=== PATIENT | male | born 1985 | race Caucasian/White ===

== ENCOUNTER 2019-01-12 22:28 | Emergency (ER) | payer OTHER ==
[~2019-01-12] VITALS: Ht 182.9 cm; Wt 82.6 kg
--- NOTE | 2019-01-12 23:05 | PHYS DOC ---
Adult General Chief Complaint Chief Complaint: ABDOMINAL PAIN HPI HPI 33-year-old male presents with right flank pain. The patient tells me he started to have pain in the right lower lateral ribs 5 days ago. He feels it's been getting worse each day. He does lift tires and other things daily. He also lifts weights. The patient presents today because he was coughing and felt like he had a sudden increase in the pain in that area. He thought maybe something "tore". He cannot identify a specific time when the pain started. It is just gradually gotten worse. Patient denies nausea, vomiting, dysuria, increased urinary frequency, change in urine color. He has no history of kidney stones. He denies trauma or falls. Review of Systems Review of Systems Constitutional: Denies fever or chills [] Eyes: Denies change in visual acuity, redness, or eye pain [] HENT: Denies nasal congestion or sore throat [] Respiratory: Denies cough or shortness of breath [] Cardiovascular: No additional information not addressed in HPI [] GI: Denies abdominal pain, nausea, vomiting, bloody stools or diarrhea [] : Denies dysuria or hematuria [] Musculoskeletal: Denies back pain or joint pain [] Integument: Denies rash or skin lesions [] Neurologic: Denies headache, focal weakness or sensory changes [] Endocrine: Denies polyuria or polydipsia [] All other systems were reviewed and found to be within normal limits, except as documented in this note. Physical Exam Physical Exam Constitutional: Well developed, well nourished, no acute distress, non-toxic appearance. [] HENT: Normocephalic, atraumatic, bilateral external ears normal, oropharynx moist, no oral exudates, nose normal. [] Eyes: PERRLA, EOMI, conjunctiva normal, no discharge. [] Neck: Normal range of motion, no tenderness, supple, no stridor. [] Cardiovascular:Heart rate regular rhythm, no murmur [] Lungs & Thorax: Bilateral breath sounds clear to auscultation [] Abdomen: Bowel sounds normal, soft, no tenderness, no masses, no pulsatile masses. [] Skin: Warm, dry, no erythema, no rash. [] Back: No tenderness, no CVA tenderness. [] Extremities: No tenderness, no cyanosis, no clubbing, ROM intact, no edema. [] Neurologic: Alert and oriented X 3, normal motor function, normal sensory function, no focal deficits noted. [] Psychologic: Affect normal, judgement normal, mood normal. [] EKG EKG [] Radiology/Procedures Radiology/Procedures [] Impressions: CT abdomen pelvis with contrast History: Right flank pain, right upper quadrant pain CT scan the abdomen and pelvis was done using Omnipaque contrast. Lung bases are clear. There is no effusion. A liver lesion is not identified. Spleen and adrenal glands are normal. Pancreas is normal. There is no mass or hydronephrosis in the kidneys. There is no calcified gallstone. The gallbladder wall was not thickened. There is no adenopathy. Bowel pattern is normal. There is moderate stool in the colon. There is no ascites. There is no renal or ureteral calculus. The appendix is noted extending into the pelvis and is normal in appearance best seen on the coronal images. Delayed images show no hydronephrosis in the kidneys. IMPRESSION: 1. Increased stool in the colon. 2. No renal or ureteral calculus. 3. Normal appendix. PQRS Compliance Statement: One or more of the following individualized dose reduction techniques were utilized for this examination: 1. Automated exposure control 2. Adjustment of the mA and/or kV according to patient size 3. Use of iterative reconstruction technique Electronically signed by: Karlos Lan MD (01/13/2019 12:00 AM) [facility] DICTATED AND SIGNED BY: KARLOS LAN MD DATE: 01/13/19 0000 CC: JARRED ROSE DO; PCP,NO ~ Course & Med Decision Making Course & Med Decision Making Pertinent Labs and Imaging studies reviewed. (See chart for details) The patient does not have any records in the narcotics database. Patient's labs are unremarkable. He was given 30 mg of Toradol and normal saline. The patient's CT is negative for acute findings. He does have some stool retention. I believe the patient discomfort is a strained muscle. I have advised that he take ibuprofen and try to rest the area as much as he can. He is in agreement with this plan. He is stable for discharge at this time. [] Dragon Disclaimer Dragon Disclaimer This electronic medical record was generated, in whole or in part, using a voice recognition dictation system. Departure Departure: Impression: Primary Impression: Chest wall muscle strain Disposition: HOME, SELF-CARE Condition: STABLE Referrals: PCP,NO (PCP) Patient Instructions: Chest Wall Pain, [id number] Problem Qualifiers Primary Impression: Chest wall muscle strain Encounter type: initial encounter Qualified Codes: S29.011A - Strain of muscle and tendon of front wall of thorax, initial encounter JARRED ROSE DO Jan 12, 2019 23:05
[2019-01-12 23:11] LABS: BASO # 0.1 x10^3/uL (0.0-0.2); BASO % 1 % (0-3); EOS # 0.3 x10^3/uL (0.0-0.7); EOS % 3 % (0-3); HEMATOCRIT 45.2 % (39.0-53.0); LYMPH # 2.8 x10^3/uL (1.0-4.8); LYMPH % 26 % (24-48); MEAN CORPUSCULAR HEMOGLOBIN 30 pg (25-35); MEAN CORPUSCULAR HGB CONC 36 g/dL (31-37); MEAN CORPUSCULAR VOLUME 85 fL (79-100); MONO # 0.6 x10^3/uL (0.0-1.1); MONO % 6 % (0-9); NEUT # 6.8 x10^3uL (1.8-7.7); NEUT % 64 % (31-73); PLATELET COUNT 170 x10^3/uL (140-400); RED CELL DISTRIBUTION WIDTH 12.8 % (11.5-14.5); WHITE BLOOD COUNT 10.6 x10^3/uL (4.0-11.0)
[2019-01-12] MEDS ORDERED: KETOROLAC 30 MG/ML VIAL. IV ONE (23:15)
[2019-01-12] MEDS ORDERED: IOHEXOL 300 MG/ML 75 ML VIAL. IV ONE (23:30)
[2019-01-12] MEDS ORDERED: CONTRAST GIVEN MC PRN (23:30)
[2019-01-12] MEDS ORDERED: IV NORMAL SALINE 1,000ML 1,000 ML IV ONE (23:30)
[2019-01-12 23:34] LABS: ALBUMIN 3.7 g/dL (3.4-5.0); ALBUMIN/GLOBULIN RATIO 1.2 (1.0-1.7); CALCIUM 9.3 mg/dL (8.5-10.1); GFR 86.1; POTASSIUM 3.9 mmol/L (3.5-5.1); TOTAL BILIRUBIN 0.3 mg/dL (0.2-1.0); TOTAL PROTEIN 6.9 g/dL (6.4-8.2)
[2019-01-12 23:48] LABS: BILIRUBIN,URINE NEG (NEG); CLARITY,URINE CLEAR; COLOR,URINE YELLOW; GLUCOSE,URINE NEG (NEG); NITRITE,URINE NEG (NEG); UROBILINOGEN,URINE 0.2 mg/dL (0.2 mg/dL)
[2019-01-12 23:49] LABS: BACTERIA,URINE 0 /HPF (0-FEW); RBC,URINE OCC /HPF (0-2); SQUAMOUS EPITHELIAL CELL,UR OCC /LPF; WBC,URINE OCC /HPF (0-4)
--- NOTE | 2019-01-13 00:02 | RAD ---
CT abdomen pelvis with contrast History: Right flank pain, right upper quadrant pain CT scan the abdomen and pelvis was done using Omnipaque contrast. Lung bases are clear. There is no effusion. A liver lesion is not identified. Spleen and adrenal glands are normal. Pancreas is normal. There is no mass or hydronephrosis in the kidneys. There is no calcified gallstone. The gallbladder wall was not thickened. There is no adenopathy. Bowel pattern is normal. There is moderate stool in the colon. There is no ascites. There is no renal or ureteral calculus. The appendix is noted extending into the pelvis and is normal in appearance best seen on the coronal images. Delayed images show no hydronephrosis in the kidneys. IMPRESSION: 1. Increased stool in the colon. 2. No renal or ureteral calculus. 3. Normal appendix. PQRS Compliance Statement: One or more of the following individualized dose reduction techniques were utilized for this examination: 1. Automated exposure control 2. Adjustment of the mA and/or kV according to patient size 3. Use of iterative reconstruction technique Electronically signed by: Jayden Adams MD (01/13/2019 12:00 AM) [facility]
--- NOTE | 2019-01-13 00:33 | RAD ---
PA and lateral chest. HISTORY: Right-sided chest pain PA and lateral views were taken of the chest. This granuloma in the right lung with calcified nodes in the right hilum. Lungs are clear. There is scarring along the left heart border. There is no pleural effusion. IMPRESSION: 1. No acute chest disease. Electronically signed by: Jayden Adams MD (01/13/2019 12:30 AM) [facility]
[2019-01-13 00:35] VITALS: BP 135/85
== END 2019-01-13 00:45 | disposition home or self-care (01) ==
LOC: ER 22:28
DX: S29.011A Strain of muscle and tendon of front wall of thorax, initial encounter (principal); X50.9XXA Other and unspecified overexertion or strenuous movements or postures, initial encounter; Y93.89 Activity, other specified; Y92.89 Other specified places as the place of occurrence of the external cause; Y99.8 Other external cause status
CPT/HCPCS: 36415; 71046; 74177; 80053; 81001; 85025; 96374; 99285; J1885; Q9967; J7030